=== PATIENT | male | born 1965 | race Caucasian/White ===

== ENCOUNTER 2018-10-08 09:18 | Emergency (ER) | payer OTHER ==
[~2018-10-08] VITALS: Ht 175.3 cm; Wt 92.1 kg
[~2018-10-08 09:18] MED LIST: CAT0.1 PO; GLU850 PO; HYDROCODONE-APAP PO; KEF500 PO; METOPROLOL PO; NORCO PO; OXCARBAZEPINE PO; PLA75 PO
[2018-10-08 09:30] VITALS: Ht 175.3 cm; Wt 92.1 kg
[2018-10-08 11:30] VITALS: BP 218/150
== END 2018-10-08 11:30 | disposition home or self-care (01) ==
LOC: ED 09:18
DX: S16.1XXA Strain of muscle, fascia and tendon at neck level, initial encounter (principal); S40.021A Contusion of right upper arm, initial encounter; I10 Essential (primary) hypertension; Z98.890 Other specified postprocedural states; Z88.8 Allergy status to other drugs, medicaments and biological substances; V49.88XA Car occupant (driver) (passenger) injured in other specified transport accidents, initial encounter; Y93.89 Activity, other specified; Y92.89 Other specified places as the place of occurrence of the external cause; Y99.8 Other external cause status
CPT/HCPCS: J1885

== ENCOUNTER 2019-08-19 02:01 | Emergency (ER) | payer OTHER ==
[~2019-08-19] VITALS: Ht 175.3 cm; Wt 91.2 kg
[2019-08-19 02:05] VITALS: Ht 175.3 cm; Wt 91.2 kg
[2019-08-19 02:43] VITALS: BP 190/109
== END 2019-08-19 02:43 | disposition home or self-care (01) ==
LOC: ED 02:01
DX: I16.0 Hypertensive urgency (principal); Z98.890 Other specified postprocedural states; Z88.8 Allergy status to other drugs, medicaments and biological substances

== ENCOUNTER 2019-08-21 19:03 | Emergency (ER) | payer OTHER ==
[~2019-08-21] VITALS: Ht 175.3 cm; Wt 94.3 kg
[2019-08-21 19:14] VITALS: Ht 175.3 cm; Wt 94.3 kg
[2019-08-21 20:32] LABS: BASOPHIL % 0.5 % (0-2); PLATELET COUNT 180 x10^3mcL (130-400); RED CELL DISTRIBUTION WIDTH 13.9 % (11.5-14.5)
[2019-08-21 20:44] LABS: CALCIUM 9.1 mg/dL (8.5-10.1); CARBON DIOXIDE 35.6 mmol/L (21-32); CREATININE SERUM 1.5 mg/dL (0.7-1.3)
[2019-08-21 20:56] LABS: T3 TOTAL 1.11 ng/mL
[2019-08-21 20:59] LABS: ALBUMIN 3.9 g/dL (3.4-5.0); BILIRUBIN TOTAL 0.25 mg/dL (0.20-1.00); CHOLESTEROL/HDL RATIO 6.3; TOTAL PROTEIN, SERUM 8.2 g/dL (6.4-8.2)
[2019-08-21 21:04] LABS: FREE T4 0.89 ng/dL (0.76-1.46); FREE THYROXINE INDEX 2.2 ug/dL (1.4-4.5); T4(THYROXINE) 6.8 ug/dL (4.7-13.3)
[2019-08-21 22:57] VITALS: BP 167/86
== END 2019-08-21 22:57 | disposition home or self-care (01) ==
LOC: ED 19:03
PROVIDERS: Specialist
DX: S16.1XXA Strain of muscle, fascia and tendon at neck level, initial encounter (principal); S39.012A Strain of muscle, fascia and tendon of lower back, initial encounter; G40.909 Epilepsy, unspecified, not intractable, without status epilepticus; I10 Essential (primary) hypertension; F32.9 Major depressive disorder, single episode, unspecified; Z90.49 Acquired absence of other specified parts of digestive tract; Z98.890 Other specified postprocedural states; Z88.8 Allergy status to other drugs, medicaments and biological substances; W19.XXXA Unspecified fall, initial encounter; Y93.89 Activity, other specified; Y92.89 Other specified places as the place of occurrence of the external cause; Y99.8 Other external cause status
CPT/HCPCS: 83880; 84439; J1885; J3010; J3490; J7030; Q0092

== ENCOUNTER 2019-09-05 09:56 | Emergency (ER) | payer OTHER ==
[~2019-09-05] VITALS: Ht 175.3 cm; Wt 94.8 kg
[2019-09-05 10:04] VITALS: Ht 175.3 cm; Wt 94.8 kg
[2019-09-05 11:39] LABS: BASOPHIL % 0.4 % (0-2); PLATELET COUNT 327 x10^3mcL (130-400)
[2019-09-05 11:43] LABS: RED CELL DISTRIBUTION WIDTH 14.8 % (11.5-14.5)
[2019-09-05 11:47] LABS: CALCIUM 8.7 mg/dL (8.5-10.1); CARBON DIOXIDE 28.6 mmol/L (21-32); CREATININE SERUM 1.4 mg/dL (0.7-1.3); POTASSIUM SERUM 4.4 mmol/L (3.5-5.1)
[2019-09-05 11:51] LABS: ALBUMIN 3.5 g/dL (3.4-5.0); BILIRUBIN TOTAL 0.25 mg/dL (0.20-1.00); TOTAL PROTEIN, SERUM 7.8 g/dL (6.4-8.2)
[2019-09-05 12:14] VITALS: BP 183/125
== END 2019-09-05 12:41 | disposition left against medical advice (07) ==
LOC: ED 09:56
PROVIDERS: Emergency Medicine
DX: G40.909 Epilepsy, unspecified, not intractable, without status epilepticus (principal); I10 Essential (primary) hypertension; F32.9 Major depressive disorder, single episode, unspecified; Z88.2 Allergy status to sulfonamides
CPT/HCPCS: J3490

== ENCOUNTER 2019-09-24 15:28 | Inpatient (IN) | payer OTHER ==
[~2019-09-24] VITALS: Ht 175.3 cm; Wt 77.1 kg
--- NOTE | 2019-09-24 16:02 | NUR ---
STARTED ON 1L NS TO 20G IN LAC PER DR ANI BHAKTA.
--- NOTE | 2019-09-24 16:05 | NUR ---
PT BIBA AFTER HAVING ARGUMENT WITH WHOM PT IN SEPERATED FROM PER MEDIC. PT REPORTED INCREASED HR. PRIOR TO GOING TO LOBBY TO AWAIT BED AVAIL, MEDIC STS PT BECAME PALE AND CLAMMY. PT THEN BECAME DIFFICULT TO AROUSE WITH VERBAL STIMULI. BUT RESPONDED TO PAINFUL STIMULI. PT MOVED TO BED 3. PER MEDIC PT DENIES SELF HARM BUT STS TOOK "A BUNCH" OF ROUTINE MEDS, REFERRING TO LABETALOL, AND APTIOM. WHEN ASKED HOW KATIA, PT STS "NO WAIT, I DIDN'T." PT CONNECTED TO FULL CM. PLACED IN TRENDELENBERG AT THIS TIME.
--- NOTE | 2019-09-24 16:11 | NUR ---
PT AT THIS TIME ADMIT TO TAKING MORE THAN PRESCRIBED AMOUNT; WHEN ASKED WHY, PT STS "MY !"
--- NOTE | 2019-09-24 16:19 | NUR ---
APTIOM 600MG AND LABETALOL 200MG FOUND IN PT'S POCKET.
[2019-09-24 16:46] LABS: BASOPHIL % 0.3 % (0-2); PLATELET COUNT 224 x10^3mcL (130-400); RED CELL DISTRIBUTION WIDTH 14.3 % (11.5-14.5)
--- NOTE | 2019-09-24 16:58 | NUR ---
TELE PSYCH IN PROGRESS AT THIS TIME. PT AAO4, RESP E/U. REMAINS CONNECTED TO FULL CM.
--- NOTE | 2019-09-24 16:58 | NUR ---
SPOKE TO [facility]AN WITH POISON CONTROL TO GIVE REPORT ON PT. PER [facility] MONITOR PT FOR 6-8 HRS FOR BRADYCARDIA AND HYPOTENSION. CHECK VALPORIC ACID, AMMONIA LEVELS. WILL CALL IF PT CONDITION CHANGES.
[2019-09-24 17:06] LABS: CALCIUM 7.9 mg/dL (8.5-10.1); CARBON DIOXIDE 26.9 mmol/L (21-32); CREATININE SERUM 1.8 mg/dL (0.7-1.3); POTASSIUM SERUM 3.8 mmol/L (3.5-5.1)
[2019-09-24 17:10] LABS: BILIRUBIN TOTAL 0.3 mg/dL (0.20-1.00); TOTAL PROTEIN, SERUM 6.6 g/dL (6.4-8.2)
--- NOTE | 2019-09-24 17:22 | NUR ---
PT CHANGED INTO GOWN; BUT REFUSED TO REMOVE JEANS AND SHOES.
--- NOTE | 2019-09-24 17:39 | NUR ---
ATTEMPTED TO CHANGE PT TO O2 VIA NC PER MD V/O BUT PT REFUSED.
--- NOTE | 2019-09-24 18:09 | NUR ---
PT TO REST VIA WC D/T HYPOTENSION. PT STS "I CAN WALK, I WALK A LOT." ENCOURAGED PT TO USE WC.
--- NOTE | 2019-09-24 19:04 | NUR ---
PT AMBULATORY TO RESTROOM WITH STEADY GAIT. STS NO DIZZINESS.
--- NOTE | 2019-09-24 19:11 | NUR ---
REPORT GIVEN TO INDRA MERAZ TO ASSUME CARE.
[2019-09-24 19:15] LABS: AMPHETAMINE QUAL UR NONE DETECTED (See below)
--- NOTE | 2019-09-24 19:32 | NUR ---
PT IN NO ACUTE DISTRESS. RESIDENT AT BEDSIDE.
--- NOTE | 2019-09-24 19:48 | NUR ---
PT REQUESTED FOR WATER, PER MD UPTON TO GIVE PT WATER AT THIS TIME. PT REMOVED HIS GOWN. REPORTED IT WAS WET. PT GIVEN NEW GOWN AND ASKED TO CHANGE INTO IT. PT REPORTED HE WOULD AFTER HE FINISHED HIS WATER.
--- NOTE | 2019-09-24 19:51 | NUR ---
GAVE REPORT TO JORDAN AT 4025 FOR ROOM 206B
[2019-09-24] MEDS ORDERED: LABETALOL HYDR200 M1 PO ×2 (19:52)
[2019-09-24] MEDS ORDERED: APTIOM600 MG PO (19:52)
--- NOTE | 2019-09-24 20:05 | NUR ---
RECEIVED PT FROM [facility] [employer], CAME IN DUE TO TAKING HIS BLOOD PRESSURE MEDICATION TO TAKE AWAY THE CHEST PAIN AFTER HAVING AN ARGUMENT WITH THE EX-. PT IS AAOX4. C/O HEADACHE, LIGHTHEADEDNESS AND NECK PAIN. SPEECH IS CLEAR. NO SOB NOTED, LUNG SOUNDS CTA. O2 SAT=96%, RA. DENIES CHEST PAIN/PRESSURE, SR ON THE MONITOR. DENIES ABDOMINAL DISCOMFORT. BOWEL SOUNDS ACTIVE. PT STATED THAT HE HAS TROUBLE URINATING, PT WAS ABLE TO URINATE LAST IN THE MORNING. PT STATED THAT HE HAS THE URGE TO URINATE. BLADDER IS SOFT. DENIES SUICIDAL IDEATION. IV SITE ON THE LAC IS PATENT AND INTACT. SIDE RAILS UPX2. CALL LIGHT ON REACH. PT'S HOME MEDICATIONS GIVEN TO PRIMARY NURSE RAMÓN. ENDORSED TO PRIMARY NURSE FOR CONTINUITY OF CARE
--- NOTE | 2019-09-24 20:10 | NUR ---
PT IN BED IN NO DISTRESS. INSTRUCTED PT TO USE CALL LIGHT WHICH IS WITHIN REACH. WILL CARRY OUT ALL NEW ORDERS AT THIS TIME.
[2019-09-24 20:22] VITALS: BP 102/70
[2019-09-24 20:30] VITALS: Ht 175.3 cm; Wt 77.1 kg
[2019-09-24 20:56] LABS: MAGNESIUM 1.6 mg/dL (1.8-2.4); PHOSPHOROUS 3.5 mg/dL (2.5-4.9)
[2019-09-24 20:58] LABS: CHOLESTEROL/HDL RATIO 5.6
[2019-09-24 21:05] LABS: T3 TOTAL 0.76 ng/mL
--- NOTE | 2019-09-24 21:30 | NUR ---
INFLUENZA VACCINE GIVEN TO LEFT DELTOID, PT TOLERATED WELL. RESTING IN BED IN NO DISTRESS. HOWEVER PT DOES APPEAR SAD D/T RECENT ARGUEMENT WITH SIGNIFICANT OTHER. COMFORT MEASURES PROVIDED. CALL LIGHT WITHIN REACH. WILL CONTINUE TO MONITOR CLOSELY.
[2019-09-24 21:33] LABS: FREE T4 0.67 ng/dL (0.76-1.46); T4(THYROXINE) 5.3 ug/dL (4.7-13.3)
--- NOTE | 2019-09-25 01:30 | NUR ---
MAG HOLT HUNG AT THIS TIME.
--- NOTE | 2019-09-25 03:04 | NUR ---
LAB CALLED RE-CRITICAL RESULT OF TROPONIN LEVEL 0.134, MADE AWARE,NO NEW ORDER,WILL INFORM PRIMARY RN OF CRITICAL RESULT.
[2019-09-25 05:58] VITALS: BP 110/63
[2019-09-25 06:11] LABS: BASOPHIL % 0.2 % (0-2); PLATELET COUNT 192 x10^3mcL (130-400); RED CELL DISTRIBUTION WIDTH 14.5 % (11.5-14.5)
[2019-09-25 06:25] LABS: CALCIUM 7.9 mg/dL (8.5-10.1); CARBON DIOXIDE 27.7 mmol/L (21-32); CREATININE SERUM 3.1 mg/dL (0.7-1.3); MAGNESIUM 2.3 mg/dL (1.8-2.4); PHOSPHOROUS 5.4 mg/dL (2.5-4.9); POTASSIUM SERUM 3.7 mmol/L (3.5-5.1)
--- NOTE | 2019-09-25 06:35 | NUR ---
PT RESTING IN BED. IVF ONGOING AT 100ML/HR. FSBS AT THIS TIME IS 163, PT REFUSED INSULIN; EDUCATED PT ON DIABETES, PT WAS INSISTENT HE IS NOT DIABETIC AND HE DOES NOT NEED INSULIN. FURTHER TEACHING NEEDED. WILL ENDORSE TO INCOMING SHIFT.
--- NOTE | 2019-09-25 07:20 | NUR ---
RECEIVED PATIENT LAYING IN BED AWAKE/ALERT, TECH AT BEDSIDE PERFORM US RENAL/BLADDER, PATIENT C/O IV PUMP IS NOT WORKING, ACKNOWLEDGE AND INFORM PATIENT NOTHING WRONG WITH THE IV PUMP, PATIENT STARTED TO GET MAD AND THREAT TO REMOVED IV, STATED "ALL NURSE ARE SAME NOT LISTENING TO ME, "I'M THE PATIENT". PATIENT REFUSED NURSE TO ASSESS AND TELL HER TO GET OUT.
[2019-09-25 07:37] VITALS: BP 129/79
--- NOTE | 2019-09-25 08:24 | NUR ---
SECURITY WEBER HERE AT BEDSIDE WITH RNGUS TALK TO PATIENT, AT FIRST PATIENT IS ANGRY AT SECURITY BUT WILLING TO TALK AND PATIENT AGREE TO COMPLIANT WITH TREATMENT AND ALLOW NURSE TO FIXED TELE AND DISCONNECT IV FROM IV PUMP, PATIENT IS CALM AND TALKING TO SECURITY REGARD TO HIS PROBLEMS, DON'T WANT AMA AT THIS TIME.
--- NOTE | 2019-09-25 09:13 | NUR ---
PATIENT CALM IN BED TOOK ALL HIS ROUTINE MED AND TOLERATED, DR. WAGNER WITH RESIDENTS AT BEDSIDE DISCUSS POC WITH PATIENT, WILL CONSULT NEPHRO AND CARDIO TO SEE PATIENT. NEED MET. CALL LIGHT WITHIN REACH.
--- NOTE | 2019-09-25 09:21 | NUR ---
[facility] POISON CONTR[facility] CALL AND RN UPDATE LABS AND VITALS, PER [facility] NEED TO MONITOR VALPROIC ACID LEVEL ONE MORE TIME. DR. MATIAS WAS INFORMED.
--- NOTE | 2019-09-25 11:57 | NUR ---
PATIENT IS CALM AND COOPERATIVE, BS 161 GAVE 3U REGULAR SQ TO RT ARM. PATIENT UP TO BATHROOM VOIDED, NEEDS MET. CALL LIGHT WITHIN REACH.
--- NOTE | 2019-09-25 12:34 | NUR ---
PATIENT WALKING BACK TO ROOM, EXPRESS HIS FEELING SAY "I AM HAPPY MY TALK TO ME". NO COMPLAINS. DEPAKOTE PO ADMINISTERED, NEEDS MET.
--- NOTE | 2019-09-25 14:56 | NUR ---
PATIENT SIGNED LEAVING AGAINST MEDICAL ADVISE, DR. DOS SANTOS WAS AWARE. REMOVED IV AND TELE BOX #17 GAVE TO ALAN. PATIENT GOT HIS 2 MEDICATION BOTTLE FROM PHARMACY. HOUSE SUP LADY AT BEDSIDE SPOKE TO PATIENT, REASON FOR LEAVING IS "NOT HAPPY WITH SERVICE AND NOBODY HOME TO FEED HIS DOGS". PATIENT LEFT AT THIS TIME WITH ALL HIS BELONGINGS.
--- NOTE | 2019-09-25 16:21 | NUR ---
ECHOCARDIOGRAM NOT DONE-DISCHARGED
[2019-09-25 19:47] LABS: UA SPECIFIC GRAVITY >=1.030 (1.005-1.035); microscopic required? YES; urine erythrocyte NEGATIVE (NEGATIVE)
== END 2019-09-25 14:53 | disposition left against medical advice (07) | DRG 812 ==
LOC: ED 15:28 → DU 19:15
PROVIDERS: Emergency Medicine; ADMIT Internal Medicine
DX: T50.992A Poisoning by other drugs, medicaments and biological substances, intentional self-harm, initial encounter (principal); I21.A1 Myocardial infarction type 2; N17.0 Acute kidney failure with tubular necrosis; E44.0 Moderate protein-calorie malnutrition; E83.42 Hypomagnesemia; D68.69 Other thrombophilia; E11.65 Type 2 diabetes mellitus with hyperglycemia; Z53.21 Procedure and treatment not carried out due to patient leaving prior to being seen by health care provider; I25.10 Atherosclerotic heart disease of native coronary artery without angina pectoris; I10 Essential (primary) hypertension; E78.5 Hyperlipidemia, unspecified; G40.909 Epilepsy, unspecified, not intractable, without status epilepticus; I25.2 Old myocardial infarction; Z68.25 Body mass index [BMI] 25.0-25.9, adult; Z79.84 Long term (current) use of oral hypoglycemic drugs; Y92.018 Other place in single-family (private) house as the place of occurrence of the external cause; Z79.899 Other long term (current) drug therapy
CPT/HCPCS: 82962; 83880; 84439; 90658; G0378; G0480; J3475; J7030; Q0092

== ENCOUNTER 2019-10-31 22:33 | Emergency (ER) | payer OTHER ==
[~2019-10-31] VITALS: Ht 175.3 cm; Wt 86.2 kg
[~2019-10-31 22:33] MED LIST changes: +APTIOM600 MG PO; +LABETALOL HYDR200 M1 PO
[2019-10-31 22:41] VITALS: Ht 175.3 cm; Wt 86.2 kg
[2019-10-31 23:57] LABS: BASOPHIL % 0.5 % (0-2); PLATELET COUNT 185 x10^3mcL (130-400); RED CELL DISTRIBUTION WIDTH 13.5 % (11.5-14.5)
[2019-11-01 00:25] LABS: CARBON DIOXIDE 27.6 mmol/L (21-32); CHLORIDE SERUM 105 mmol/L (98-107); CREATININE SERUM 1.2 mg/dL (0.7-1.3); GFR1 > 60 mL/min; GLUCOSE SERUM 179 mg/dL (74-106); POTASSIUM SERUM 3.8 mmol/L (3.5-5.1); SODIUM SERUM 142 mmol/L (136-145)
[2019-11-01 00:31] LABS: ALKALINE PHOSPHATASE 70 U/L (46-116); ALT/SGPT 29 U/L (16-63); AST/SGOT 9 U/L (15-37); BILIRUBIN TOTAL 0.2 mg/dL (0.20-1.00); LIPASE 240 IU/L (73-393)
[2019-11-01 00:33] LABS: ALBUMIN 3.3 g/dL (3.4-5.0)
[2019-11-01 05:17] VITALS: BP 160/99
== END 2019-11-01 05:16 | disposition home or self-care (01) ==
LOC: ED 22:33
PROVIDERS: Emergency Medicine
DX: K57.90 Diverticulosis of intestine, part unspecified, without perforation or abscess without bleeding (principal); R51 Headache; Z98.890 Other specified postprocedural states; Z88.8 Allergy status to other drugs, medicaments and biological substances
CPT/HCPCS: 36415; J1885

== ENCOUNTER 2019-11-15 11:47 | Inpatient (IN) | payer OTHER ==
[~2019-11-15] VITALS: Ht 175.3 cm; Wt 96.6 kg
[2019-11-15 11:56] VITALS: Ht 175.3 cm; Wt 96.6 kg
[2019-11-15 12:30] LABS: BASOPHIL % 0.5 % (0-2); PLATELET COUNT 265 x10^3mcL (130-400); RED CELL DISTRIBUTION WIDTH 13.2 % (11.5-14.5)
[2019-11-15 13:14] LABS: ALBUMIN 3.7 g/dL (3.4-5.0); BILIRUBIN TOTAL 0.2 mg/dL (0.20-1.00); CALCIUM 8.6 mg/dL (8.5-10.1); CARBON DIOXIDE 28.8 mmol/L (21-32); CREATININE SERUM 1.4 mg/dL (0.7-1.3)
[2019-11-15 14:20] LABS: MAGNESIUM 1.7 mg/dL (1.8-2.4)
[2019-11-15 14:39] LABS: CHOLESTEROL 207 mg/dL (<200); HDL CHOLESTEROL 26 mg/dL (40-60); TRIGLYCERIDES 644 mg/dL (<150)
[2019-11-15 15:13] VITALS: BP 178/103
[2019-11-15 16:10] VITALS: BP 132/100
[2019-11-15 19:45] VITALS: BP 137/80
[2019-11-15 22:59] VITALS: BP 141/78
[2019-11-16 05:02] VITALS: BP 151/83
[2019-11-16 06:06] LABS: BASOPHIL % 0.2 % (0-2); PLATELET COUNT 241 x10^3mcL (130-400); RED CELL DISTRIBUTION WIDTH 13.7 % (11.5-14.5)
[2019-11-16 06:23] LABS: CALCIUM 8.5 mg/dL (8.5-10.1); CARBON DIOXIDE 25.9 mmol/L (21-32); CHLORIDE SERUM 101 mmol/L (98-107); CREATININE SERUM 1.3 mg/dL (0.7-1.3); GFR1 > 60 mL/min; GLUCOSE SERUM 117 mg/dL (74-106); POTASSIUM SERUM 3.8 mmol/L (3.5-5.1); SODIUM SERUM 137 mmol/L (136-145)
[2019-11-16 08:27] VITALS: BP 160/73
[2019-11-16 12:58] VITALS: BP 140/86
[2019-11-16 17:28] VITALS: BP 181/100
[2019-11-16 18:06] VITALS: BP 157/87
[2019-11-16 20:50] VITALS: BP 158/87
[2019-11-17 05:55] VITALS: BP 181/88
[2019-11-17 06:28] LABS: BASOPHIL % 0.3 % (0-2); PLATELET COUNT 242 x10^3mcL (130-400); RED CELL DISTRIBUTION WIDTH 13.4 % (11.5-14.5)
[2019-11-17 06:43] LABS: CALCIUM 8.8 mg/dL (8.5-10.1); CARBON DIOXIDE 32.3 mmol/L (21-32); CHLORIDE SERUM 103 mmol/L (98-107); CREATININE SERUM 1.1 mg/dL (0.7-1.3); GFR1 > 60 mL/min; GLUCOSE SERUM 118 mg/dL (74-106); POTASSIUM SERUM 3.8 mmol/L (3.5-5.1); SODIUM SERUM 138 mmol/L (136-145)
== END 2019-11-17 08:14 | disposition left against medical advice (07) | DRG 190 ==
LOC: ED 11:47 → DU 13:29
PROVIDERS: Emergency Medicine; ADMIT Internal Medicine
DX: I21.A1 Myocardial infarction type 2 (principal); E11.65 Type 2 diabetes mellitus with hyperglycemia; I16.1 Hypertensive emergency; E83.42 Hypomagnesemia; Z53.29 Procedure and treatment not carried out because of patient's decision for other reasons; E78.5 Hyperlipidemia, unspecified; I10 Essential (primary) hypertension; I25.2 Old myocardial infarction; Z88.8 Allergy status to other drugs, medicaments and biological substances; Z91.14 Patient's other noncompliance with medication regimen; Z79.899 Other long term (current) drug therapy
CPT/HCPCS: 82962; 83880; G0378; J0360; J3490; Q0092

== ENCOUNTER 2019-12-02 09:51 | Inpatient (IN) | payer OTHER ==
[~2019-12-02] VITALS: Ht 175.3 cm; Wt 114.4 kg
[2019-12-02 09:52] VITALS: Ht 175.3 cm; Wt 114.4 kg
[2019-12-02 10:11] LABS: BASOPHIL % 0.3 % (0-2); PLATELET COUNT 241 x10^3mcL (130-400); RED CELL DISTRIBUTION WIDTH 13.5 % (11.5-14.5)
[2019-12-02 10:21] LABS: CALCIUM 8.6 mg/dL (8.5-10.1); CHLORIDE SERUM 102 mmol/L (98-107); CREATININE SERUM 1.3 mg/dL (0.7-1.3); GFR1 > 60 mL/min; GLUCOSE SERUM 108 mg/dL (74-106); POTASSIUM SERUM 4.1 mmol/L (3.5-5.1); SODIUM SERUM 138 mmol/L (136-145)
[2019-12-02 10:26] LABS: ALBUMIN 3.7 g/dL (3.4-5.0); ALKALINE PHOSPHATASE 81 U/L (46-116); ALT/SGPT 27 U/L (16-63); AST/SGOT 23 U/L (15-37); BILIRUBIN TOTAL 0.2 mg/dL (0.20-1.00); TOTAL PROTEIN, SERUM 7.9 g/dL (6.4-8.2)
[2019-12-02] MEDS ORDERED: DEPAKOTE500 MG PO (10:27)
[2019-12-02 12:47] VITALS: BP 190/106
[2019-12-02 13:37] VITALS: BP 178/115
[2019-12-02 16:40] VITALS: BP 148/100
[2019-12-02] MEDS ORDERED: NORCO1 TA2 PO (17:49)
[2019-12-02] MEDS ORDERED: DEPAKOTE ER500 MG PO (17:50)
[2019-12-02] MEDS ORDERED: APTIOM600 MG PO (17:51)
[2019-12-02 20:30] VITALS: BP 127/88
[2019-12-03 06:29] VITALS: BP 95/59
[2019-12-03 06:30] LABS: BASOPHIL % 0.3 % (0-2); PLATELET COUNT 251 x10^3mcL (130-400)
[2019-12-03 07:24] LABS: CALCIUM 8.4 mg/dL (8.5-10.1); CREATININE SERUM 2.6 mg/dL (0.7-1.3); POTASSIUM SERUM 5.3 mmol/L (3.5-5.1)
[2019-12-03 12:55] VITALS: BP 127/80
[2019-12-03 16:17] VITALS: BP 130/78; BP 160/65
[2019-12-03 19:15] VITALS: BP 137/83
[2019-12-04 06:12] VITALS: BP 165/108
[2019-12-04 06:51] VITALS: BP 169/94
[2019-12-04 07:36] LABS: BASOPHIL % 0.2 % (0-2); PLATELET COUNT 254 x10^3mcL (130-400); RED CELL DISTRIBUTION WIDTH 13.3 % (11.5-14.5)
[2019-12-04 07:45] LABS: CALCIUM 8.7 mg/dL (8.5-10.1); CARBON DIOXIDE 25.7 mmol/L (21-32); CREATININE SERUM 1.4 mg/dL (0.7-1.3); POTASSIUM SERUM 4.1 mmol/L (3.5-5.1)
[2019-12-04 08:22] VITALS: BP 157/104
[2019-12-04 11:53] VITALS: BP 145/96
[2019-12-04] MEDS ORDERED: CARVEDILOL12.5 M1 PO (13:23)
[2019-12-04 13:48] VITALS: BP 145/96
== END 2019-12-04 14:47 | disposition home or self-care (01) | DRG 199 ==
LOC: ED 09:51 → DU 11:10
PROVIDERS: Emergency Medicine; Internal Medicine; ADMIT Family Medicine
DX: I16.0 Hypertensive urgency (principal); E11.65 Type 2 diabetes mellitus with hyperglycemia; I25.10 Atherosclerotic heart disease of native coronary artery without angina pectoris; E78.5 Hyperlipidemia, unspecified; I10 Essential (primary) hypertension; G40.909 Epilepsy, unspecified, not intractable, without status epilepticus; I25.2 Old myocardial infarction; Z91.14 Patient's other noncompliance with medication regimen; Z88.8 Allergy status to other drugs, medicaments and biological substances; Z79.899 Other long term (current) drug therapy
CPT/HCPCS: 82962; G0378; J0360; J2270; J3490; Q0092

== ENCOUNTER 2019-12-07 21:59 | Emergency (ER) | payer OTHER ==
[~2019-12-07] VITALS: Ht 175.3 cm; Wt 94.8 kg
[~2019-12-07 21:59] MED LIST changes: +CARVEDILOL12.5 M1 PO; +DEPAKOTE ER500 MG PO; +DEPAKOTE500 MG PO; +NORCO1 TA2 PO
[2019-12-07 23:17] VITALS: BP 150/89
== END 2019-12-08 00:03 | disposition left against medical advice (07) ==
LOC: ED 21:59
DX: R56.9 Unspecified convulsions (principal); R07.89 Other chest pain; R79.89 Other specified abnormal findings of blood chemistry; I10 Essential (primary) hypertension
CPT/HCPCS: 36415; Q0092

== ENCOUNTER 2019-12-11 10:08 | Emergency (ER) | payer OTHER ==
[~2019-12-11] VITALS: Ht 175.3 cm; Wt 93.0 kg
[2019-12-11 10:13] VITALS: Ht 175.3 cm; Wt 93.0 kg
[2019-12-11 11:43] LABS: CALCIUM 8.4 mg/dL (8.5-10.1); CARBON DIOXIDE 30.5 mmol/L (21-32); CREATININE SERUM 1.4 mg/dL (0.7-1.3); POTASSIUM SERUM 4.4 mmol/L (3.5-5.1)
[2019-12-11 11:47] LABS: ALBUMIN 3.7 g/dL (3.4-5.0); BILIRUBIN TOTAL 0.2 mg/dL (0.20-1.00)
[2019-12-11 13:47] VITALS: BP 167/99
== END 2019-12-11 13:47 | disposition home or self-care (01) ==
LOC: ED 10:08
PROVIDERS: Emergency Medicine
DX: S60.221A Contusion of right hand, initial encounter (principal); R56.9 Unspecified convulsions; R51 Headache; H53.8 Other visual disturbances; I10 Essential (primary) hypertension; I25.2 Old myocardial infarction; X58.XXXA Exposure to other specified factors, initial encounter; Y93.89 Activity, other specified; Y92.89 Other specified places as the place of occurrence of the external cause; Y99.8 Other external cause status
CPT/HCPCS: 36415; Q0092

== ENCOUNTER 2020-01-01 17:13 | Inpatient (IN) | payer OTHER ==
[~2020-01-01] VITALS: Ht 175.3 cm; Wt 92.6 kg
[2020-01-01] MEDS ORDERED: DEPAKOTE500 MG PO (20:14)
[2020-01-01] MEDS ORDERED: APTIOM600 MG PO (20:14)
[2020-01-01] MEDS ORDERED: LABETALOL HYDR200 M1 PO (20:15)
[2020-01-01 20:17] LABS: BASOPHIL % 0.4 % (0-2); PLATELET COUNT 238 x10^3mcL (130-400); RED CELL DISTRIBUTION WIDTH 13.6 % (11.5-14.5)
[2020-01-01] MEDS ORDERED: IBU800 M2 PO (20:17)
[2020-01-01] MEDS ORDERED: LORCET1 TAB PO (20:17)
[2020-01-01 20:22] LABS: CALCIUM 9.1 mg/dL (8.5-10.1); CHLORIDE SERUM 104 mmol/L (98-107); CREATININE SERUM 1.2 mg/dL (0.7-1.3); GFR1 > 60 mL/min; GLUCOSE SERUM 99 mg/dL (74-106); POTASSIUM SERUM 4.4 mmol/L (3.5-5.1); SODIUM SERUM 143 mmol/L (136-145)
[2020-01-01 20:26] LABS: ALBUMIN 3.8 g/dL (3.4-5.0); ALKALINE PHOSPHATASE 72 U/L (46-116); ALT/SGPT 30 U/L (16-63); AST/SGOT 16 U/L (15-37); BILIRUBIN TOTAL 0.2 mg/dL (0.20-1.00); LIPASE 231 IU/L (73-393); TOTAL PROTEIN, SERUM 7.8 g/dL (6.4-8.2)
[2020-01-01 21:11] LABS: AMPHETAMINE QUAL UR NONE DETECTED (See below)
[2020-01-01 21:31] LABS: CHOLESTEROL/HDL RATIO 6.2
[2020-01-01 21:43] VITALS: BP 183/108
[2020-01-01 21:59] VITALS: Ht 175.3 cm; Wt 92.6 kg
== END 2020-01-02 07:00 | disposition left against medical advice (07) | DRG 190 ==
LOC: ED 17:13 → DU 19:56
PROVIDERS: Emergency Medicine; ADMIT Student in an Organized Health Care Education/Training Program
DX: I21.4 Non-ST elevation (NSTEMI) myocardial infarction (principal); R56.9 Unspecified convulsions; I10 Essential (primary) hypertension; R73.03 Prediabetes; E78.5 Hyperlipidemia, unspecified; Z53.29 Procedure and treatment not carried out because of patient's decision for other reasons; I24.9 Acute ischemic heart disease, unspecified; I16.0 Hypertensive urgency; I25.2 Old myocardial infarction; Z91.14 Patient's other noncompliance with medication regimen; Z88.8 Allergy status to other drugs, medicaments and biological substances
CPT/HCPCS: 83880; G0378; J1650; J3490

== ENCOUNTER 2020-01-13 21:23 | Inpatient (IN) | payer OTHER ==
[~2020-01-13] VITALS: Ht 175.3 cm; Wt 96.6 kg
[~2020-01-13 21:23] MED LIST changes: +IBU800 M2 PO; +LORCET1 TAB PO
[2020-01-13 22:10] LABS: BASOPHIL % 0.4 % (0-2); PLATELET COUNT 210 x10^3mcL (130-400); RED CELL DISTRIBUTION WIDTH 14.2 % (11.5-14.5)
[2020-01-13 22:26] LABS: CALCIUM 8.3 mg/dL (8.5-10.1); CARBON DIOXIDE 26.9 mmol/L (21-32); CREATININE SERUM 1.5 mg/dL (0.7-1.3); POTASSIUM SERUM 3.3 mmol/L (3.5-5.1)
[2020-01-13 22:31] LABS: ALBUMIN 3.5 g/dL (3.4-5.0); BILIRUBIN TOTAL 0.13 mg/dL (0.20-1.00)
[2020-01-13 23:50] LABS: CHOLESTEROL/HDL RATIO 6.8
[2020-01-14 00:03] LABS: FREE T4 0.75 ng/dL (0.76-1.46)
[2020-01-14 00:04] LABS: FREE THYROXINE INDEX 1.1 ug/dL (1.4-4.5); T4(THYROXINE) 3.8 ug/dL (4.7-13.3)
[2020-01-14 00:08] VITALS: Ht 175.3 cm; Wt 96.6 kg
[2020-01-14 00:17] LABS: T3 TOTAL 0.96 ng/mL
[2020-01-14 02:13] LABS: UA SPECIFIC GRAVITY >=1.030 (1.005-1.035); microscopic required? YES; urine erythrocyte NEGATIVE (NEGATIVE)
[2020-01-14 02:22] LABS: AMPHETAMINE QUAL UR NONE DETECTED (See below)
[2020-01-14 03:38] VITALS: BP 164/97
[2020-01-14 05:06] VITALS: BP 174/102
[2020-01-14 06:27] LABS: BASOPHIL % 0.2 % (0-2); PLATELET COUNT 197 x10^3mcL (130-400); RED CELL DISTRIBUTION WIDTH 14.5 % (11.5-14.5)
[2020-01-14 06:57] LABS: CALCIUM 8.4 mg/dL (8.5-10.1); CARBON DIOXIDE 26.6 mmol/L (21-32); CREATININE SERUM 1.4 mg/dL (0.7-1.3); MAGNESIUM 1.8 mg/dL (1.8-2.4); PHOSPHOROUS 3.5 mg/dL (2.5-4.9); POTASSIUM SERUM 3.5 mmol/L (3.5-5.1)
[2020-01-14 07:41] VITALS: BP 204/130
== END 2020-01-14 09:10 | disposition left against medical advice (07) | DRG 199 ==
LOC: ED 21:23 → DU 23:13
PROVIDERS: Emergency Medicine; ADMIT Family Medicine
DX: I16.0 Hypertensive urgency (principal); I24.8 Other forms of acute ischemic heart disease; E11.9 Type 2 diabetes mellitus without complications; I25.2 Old myocardial infarction; I10 Essential (primary) hypertension; Z53.29 Procedure and treatment not carried out because of patient's decision for other reasons; G40.909 Epilepsy, unspecified, not intractable, without status epilepticus; E87.6 Hypokalemia; E78.5 Hyperlipidemia, unspecified; Z91.19 Patient's noncompliance with other medical treatment and regimen
CPT/HCPCS: 82962; 83880; 84439; 85378; C9113; G0378; J0360; J1650; J2405; J3490; J7030; Q0092

== ENCOUNTER 2020-03-17 13:41 | Emergency (ER) | payer OTHER ==
[~2020-03-17] VITALS: Ht 175.3 cm; Wt 95.3 kg
[2020-03-17 13:48] VITALS: BP 188/124; Ht 175.3 cm; Wt 95.3 kg
== END 2020-03-17 15:00 | disposition home or self-care (01) ==
LOC: ED 13:41
DX: G89.29 Other chronic pain (principal); M79.672 Pain in left foot; M79.671 Pain in right foot; I25.2 Old myocardial infarction; I10 Essential (primary) hypertension; Z98.890 Other specified postprocedural states; Z88.8 Allergy status to other drugs, medicaments and biological substances; Z76.0 Encounter for issue of repeat prescription

== ENCOUNTER 2020-03-23 14:57 | Emergency (ER) | payer OTHER ==
[~2020-03-23] VITALS: Ht 175.3 cm; Wt 94.3 kg
[2020-03-23 15:17] VITALS: Ht 175.3 cm; Wt 94.3 kg
[2020-03-23 16:49] LABS: BASOPHIL % 0.4 % (0-2); PLATELET COUNT 240 x10^3mcL (130-400); RED CELL DISTRIBUTION WIDTH 13.8 % (11.5-14.5)
[2020-03-23 17:10] VITALS: BP 214/137
[2020-03-23 17:27] LABS: CALCIUM 8.3 mg/dL (8.5-10.1); CARBON DIOXIDE 28.9 mmol/L (21-32); CHLORIDE SERUM 104 mmol/L (98-107); CREATININE SERUM 1.2 mg/dL (0.7-1.3); GFR1 > 60 mL/min; GLUCOSE SERUM 122 mg/dL (74-106); POTASSIUM SERUM 3.8 mmol/L (3.5-5.1); SODIUM SERUM 141 mmol/L (136-145)
[2020-03-23 17:28] LABS: UA SPECIFIC GRAVITY >=1.030 (1.005-1.035); urine erythrocyte NEGATIVE (NEGATIVE)
[2020-03-23 17:29] LABS: microscopic required? YES
[2020-03-23 17:36] LABS: AMPHETAMINE QUAL UR NONE DETECTED (See below)
[2020-03-23 17:40] LABS: ALBUMIN 3.6 g/dL (3.4-5.0); ALKALINE PHOSPHATASE 86 U/L (46-116); ALT/SGPT 29 U/L (16-63); AST/SGOT 13 U/L (15-37); BILIRUBIN TOTAL 0.2 mg/dL (0.20-1.00); LIPASE 192 IU/L (73-393); MAGNESIUM 1.8 mg/dL (1.8-2.4); T4(THYROXINE) 4.7 ug/dL (4.7-13.3); TOTAL PROTEIN, SERUM 7.9 g/dL (6.4-8.2)
[2020-03-23 17:41] LABS: CHOLESTEROL 252 mg/dL (<200); HDL CHOLESTEROL 34 mg/dL (40-60)
== END 2020-03-23 17:10 | disposition left against medical advice (07) ==
LOC: ED 14:57
PROVIDERS: Emergency Medicine
DX: I21.4 Non-ST elevation (NSTEMI) myocardial infarction (principal); R56.9 Unspecified convulsions; I10 Essential (primary) hypertension; E11.9 Type 2 diabetes mellitus without complications; Z90.89 Acquired absence of other organs; Z59.0 Homelessness; Z88.8 Allergy status to other drugs, medicaments and biological substances
CPT/HCPCS: 83880; G0480; J1940; J3490; Q0092

== ENCOUNTER 2020-04-23 10:59 | Emergency (ER) | payer OTHER ==
[~2020-04-23] VITALS: Ht 175.3 cm; Wt 90.7 kg
[2020-04-23 11:06] VITALS: Ht 175.3 cm; Wt 90.7 kg
[2020-04-23 11:45] LABS: BASOPHIL % 0.3 % (0-2); PLATELET COUNT 240 x10^3mcL (130-400); RED CELL DISTRIBUTION WIDTH 14.2 % (11.5-14.5)
[2020-04-23 11:55] LABS: CALCIUM 7.6 mg/dL (8.5-10.1); CARBON DIOXIDE 30.2 mmol/L (21-32); CHLORIDE SERUM 103 mmol/L (98-107); CREATININE SERUM 1.3 mg/dL (0.7-1.3); GFR1 > 60 mL/min; GLUCOSE SERUM 145 mg/dL (74-106); POTASSIUM SERUM 3.4 mmol/L (3.5-5.1); SODIUM SERUM 141 mmol/L (136-145)
[2020-04-23 11:59] LABS: ALBUMIN 3.4 g/dL (3.4-5.0); ALKALINE PHOSPHATASE 98 U/L (46-116); ALT/SGPT 29 U/L (16-63); AST/SGOT 17 U/L (15-37); BILIRUBIN TOTAL 0.21 mg/dL (0.20-1.00); TOTAL PROTEIN, SERUM 7.3 g/dL (6.4-8.2)
[2020-04-23 12:00] LABS: CHOLESTEROL 208 mg/dL (<200)
[2020-04-23 13:19] VITALS: BP 178/110
== END 2020-04-23 13:47 | disposition left against medical advice (07) ==
LOC: ED 10:59 → DU 13:13
PROVIDERS: Emergency Medicine
DX: R55 Syncope and collapse (principal); I10 Essential (primary) hypertension; E11.9 Type 2 diabetes mellitus without complications; Z88.8 Allergy status to other drugs, medicaments and biological substances
CPT/HCPCS: G0378; J1885; Q0092

== ENCOUNTER 2020-05-01 12:06 | Emergency (ER) | payer OTHER ==
[~2020-05-01] VITALS: Ht 177.8 cm; Wt 81.6 kg
[2020-05-01 12:51] VITALS: Ht 177.8 cm; Wt 81.6 kg
[2020-05-01 15:35] VITALS: BP 170/122
== END 2020-05-01 15:35 | disposition left against medical advice (07) ==
LOC: ED 12:06
DX: S46.912A Strain of unspecified muscle, fascia and tendon at shoulder and upper arm level, left arm, initial encounter (principal); M54.9 Dorsalgia, unspecified; I10 Essential (primary) hypertension; E11.9 Type 2 diabetes mellitus without complications; Z98.890 Other specified postprocedural states; Z88.8 Allergy status to other drugs, medicaments and biological substances; V03.99XA Pedestrian with other conveyance injured in collision with car, pick-up truck or van, unspecified whether traffic or nontraffic accident, initial encounter; Y93.89 Activity, other specified; Y92.89 Other specified places as the place of occurrence of the external cause; Y99.8 Other external cause status
CPT/HCPCS: 72072

== ENCOUNTER 2020-05-10 16:44 | Emergency (ER) | payer OTHER ==
[~2020-05-10] VITALS: Ht 175.3 cm; Wt 93.0 kg
[2020-05-10 16:51] VITALS: Ht 175.3 cm; Wt 93.0 kg
[2020-05-10 17:34] LABS: BASOPHIL % 0.4 % (0-2); PLATELET COUNT 231 x10^3mcL (130-400); RED CELL DISTRIBUTION WIDTH 14.1 % (11.5-14.5)
[2020-05-10 17:55] LABS: CALCIUM 8.1 mg/dL (8.5-10.1); CARBON DIOXIDE 28.5 mmol/L (21-32); CHLORIDE SERUM 104 mmol/L (98-107); CREATININE SERUM 1.2 mg/dL (0.7-1.3); GFR1 > 60 mL/min; GLUCOSE SERUM 110 mg/dL (74-106); POTASSIUM SERUM 3.8 mmol/L (3.5-5.1); SODIUM SERUM 141 mmol/L (136-145)
[2020-05-10 17:59] LABS: ALBUMIN 3.4 g/dL (3.4-5.0); ALKALINE PHOSPHATASE 92 U/L (46-116); ALT/SGPT 24 U/L (16-63); AST/SGOT 10 U/L (15-37); BILIRUBIN TOTAL 0.2 mg/dL (0.20-1.00); LIPASE 168 IU/L (73-393); TOTAL PROTEIN, SERUM 7.4 g/dL (6.4-8.2)
[2020-05-10 18:44] VITALS: BP 203/124
== END 2020-05-10 18:45 | disposition home or self-care (01) ==
LOC: ED 16:44
PROVIDERS: Emergency Medicine
DX: I24.9 Acute ischemic heart disease, unspecified (principal); I10 Essential (primary) hypertension; G40.909 Epilepsy, unspecified, not intractable, without status epilepticus; E11.9 Type 2 diabetes mellitus without complications
CPT/HCPCS: J3490; Q0092

== ENCOUNTER 2020-05-22 20:25 | Inpatient (IN) | payer OTHER ==
[~2020-05-22] VITALS: Ht 175.3 cm; Wt 90.7 kg
[2020-05-22 20:34] VITALS: Ht 175.3 cm; Wt 90.7 kg
[2020-05-22 21:16] LABS: BASOPHIL % 0.2 % (0-2); PLATELET COUNT 218 x10^3mcL (130-400); RED CELL DISTRIBUTION WIDTH 14.3 % (11.5-14.5)
[2020-05-22 21:17] LABS: CALCIUM 8.4 mg/dL (8.5-10.1); CARBON DIOXIDE 27.4 mmol/L (21-32); CREATININE SERUM 1.6 mg/dL (0.7-1.3); POTASSIUM SERUM 3.7 mmol/L (3.5-5.1)
[2020-05-22 21:20] LABS: ALBUMIN 3.5 g/dL (3.4-5.0)
[2020-05-22 22:08] LABS: BILIRUBIN TOTAL 0.19 mg/dL (0.20-1.00); TOTAL PROTEIN, SERUM 7.4 g/dL (6.4-8.2)
[2020-05-22 23:38] LABS: MAGNESIUM 1.9 mg/dL (1.8-2.4); PHOSPHOROUS 3.9 mg/dL (2.5-4.9)
[2020-05-22 23:39] LABS: CHOLESTEROL/HDL RATIO 7.2
[2020-05-22 23:45] LABS: FREE T4 0.74 ng/dL (0.76-1.46); FREE THYROXINE INDEX 1.6 ug/dL (1.4-4.5); T4(THYROXINE) 5.1 ug/dL (4.7-13.3)
[2020-05-22] MEDS ORDERED: NOR7T PO (23:50)
[2020-05-22] MEDS ORDERED: DEPAKOTE500 MG PO (23:50)
[2020-05-22] MEDS ORDERED: FORTAMET500 M1 PO (23:51)
[2020-05-22] MEDS ORDERED: ZESTRIL20 MG PO (23:51)
[2020-05-23 00:28] LABS: T3 TOTAL 0.94 ng/mL
[2020-05-23 00:48] VITALS: BP 154/92
[2020-05-23 05:45] VITALS: BP 144/79
[2020-05-23 06:59] LABS: BASOPHIL % 0.3 % (0-2); PLATELET COUNT 205 x10^3mcL (130-400); RED CELL DISTRIBUTION WIDTH 14.5 % (11.5-14.5)
[2020-05-23 07:14] LABS: CALCIUM 7.8 mg/dL (8.5-10.1); CREATININE SERUM 1.5 mg/dL (0.7-1.3); POTASSIUM SERUM 3.6 mmol/L (3.5-5.1)
[2020-05-23 08:41] VITALS: BP 144/84
[2020-05-23 09:18] LABS: UA SPECIFIC GRAVITY >=1.030 (1.005-1.035); microscopic required? YES; urine erythrocyte NEGATIVE (NEGATIVE)
[2020-05-23 12:34] VITALS: BP 145/88
== END 2020-05-23 14:15 | disposition left against medical advice (07) | DRG 199 ==
LOC: ED 20:25 → DU 22:32
PROVIDERS: Emergency Medicine; ADMIT Internal Medicine; ATTEND Internal Medicine
DX: I16.1 Hypertensive emergency (principal); N17.9 Acute kidney failure, unspecified; E11.22 Type 2 diabetes mellitus with diabetic chronic kidney disease; G40.909 Epilepsy, unspecified, not intractable, without status epilepticus; I25.2 Old myocardial infarction; I12.9 Hypertensive chronic kidney disease with stage 1 through stage 4 chronic kidney disease, or unspecified chronic kidney disease; N18.9 Chronic kidney disease, unspecified; Z82.49 Family history of ischemic heart disease and other diseases of the circulatory system; Z91.14 Patient's other noncompliance with medication regimen; Z79.899 Other long term (current) drug therapy
CPT/HCPCS: 82962; 83880; 84439; G0378; J1650; J2270; J2405; J3490; Q0092

== ENCOUNTER 2020-05-27 12:17 | Emergency (ER) | payer OTHER ==
[~2020-05-27] VITALS: Ht 175.3 cm; Wt 91.6 kg
[~2020-05-27 12:17] MED LIST changes: +FORTAMET500 M1 PO; +NOR7T PO; +ZESTRIL20 MG PO
[2020-05-27 12:34] VITALS: Ht 175.3 cm; Wt 91.6 kg
[2020-05-27 13:03] LABS: CALCIUM 8.2 mg/dL (8.5-10.1); CARBON DIOXIDE 28.1 mmol/L (21-32); CREATININE SERUM 1.6 mg/dL (0.7-1.3); POTASSIUM SERUM 3.8 mmol/L (3.5-5.1)
[2020-05-27 13:08] LABS: ALBUMIN 3.4 g/dL (3.4-5.0); BILIRUBIN TOTAL 0.18 mg/dL (0.20-1.00); TOTAL PROTEIN, SERUM 7.4 g/dL (6.4-8.2)
[2020-05-27 13:22] LABS: BASOPHIL % 0.4 % (0-2); PLATELET COUNT 233 x10^3mcL (130-400); RED CELL DISTRIBUTION WIDTH 14.4 % (11.5-14.5)
[2020-05-27 14:22] VITALS: BP 161/100
== END 2020-05-27 14:22 | disposition home or self-care (01) ==
LOC: ED 12:17
PROVIDERS: Emergency Medicine
DX: I24.9 Acute ischemic heart disease, unspecified (principal); I16.0 Hypertensive urgency; I25.2 Old myocardial infarction; I10 Essential (primary) hypertension; E11.9 Type 2 diabetes mellitus without complications
CPT/HCPCS: 85378; Q0092

== ENCOUNTER 2020-08-09 11:43 | Observation (INO) | payer OTHER ==
[~2020-08-09] VITALS: Ht 175.3 cm; Wt 96.2 kg
[2020-08-09 11:59] VITALS: Ht 175.3 cm; Wt 96.2 kg
[2020-08-09 13:20] LABS: BASOPHIL % 0.9 % (0-2); PLATELET COUNT 235 x10^3mcL (130-400)
[2020-08-09 14:31] LABS: CALCIUM 8.3 mg/dL (8.5-10.1); CARBON DIOXIDE 29.7 mmol/L (21-32); CHLORIDE SERUM 103 mmol/L (98-107); CREATININE SERUM 1.2 mg/dL (0.7-1.3); GFR1 > 60 mL/min; GLUCOSE SERUM 117 mg/dL (74-106); POTASSIUM SERUM 3.9 mmol/L (3.5-5.1); SODIUM SERUM 141 mmol/L (136-145)
[2020-08-09 14:36] LABS: ALBUMIN 3.6 g/dL (3.4-5.0); ALKALINE PHOSPHATASE 82 U/L (46-116); ALT/SGPT 22 U/L (16-63); AST/SGOT 12 U/L (15-37); BILIRUBIN TOTAL 0.2 mg/dL (0.20-1.00); TOTAL PROTEIN, SERUM 7.6 g/dL (6.4-8.2)
[2020-08-09] MEDS ORDERED: DEPAKOTE500 MG PO (15:04)
[2020-08-09] MEDS ORDERED: APTIOM600 MG PO (15:05)
[2020-08-09 18:47] VITALS: BP 152/93
[2020-08-09 20:27] VITALS: BP 164/93
[2020-08-10 05:49] VITALS: BP 151/82
[2020-08-10 09:14] LABS: PLATELET COUNT 247 x10^3mcL (130-400); RED CELL DISTRIBUTION WIDTH 14.4 % (11.5-14.5)
== END 2020-08-10 07:40 | disposition left against medical advice (07) ==
LOC: ED 11:43 → DU 15:19
PROVIDERS: Emergency Medicine; ADMIT Hospitalist; ATTEND Hospitalist
DX: I16.0 Hypertensive urgency (principal); R07.9 Chest pain, unspecified; I25.2 Old myocardial infarction; G40.909 Epilepsy, unspecified, not intractable, without status epilepticus; I25.10 Atherosclerotic heart disease of native coronary artery without angina pectoris; I10 Essential (primary) hypertension; Z98.890 Other specified postprocedural states; Z95.1 Presence of aortocoronary bypass graft
CPT/HCPCS: G0378; J0360; J1953; J2060; J2405; J3490

== ENCOUNTER 2020-08-13 15:49 | Emergency (ER) | payer OTHER ==
[~2020-08-13] VITALS: Ht 175.3 cm; Wt 94.3 kg
[2020-08-13 15:59] VITALS: Ht 175.3 cm; Wt 94.3 kg
[2020-08-13 16:17] VITALS: BP 205/135
== END 2020-08-13 16:18 | disposition left against medical advice (07) ==
LOC: ED 15:49
DX: Z53.21 Procedure and treatment not carried out due to patient leaving prior to being seen by health care provider (principal)
CPT/HCPCS: 82962

== ENCOUNTER 2020-08-18 13:56 | Emergency (ER) | payer OTHER | END 2020-08-18 15:23 | disposition left against medical advice (07) | LOC: ED 13:56 | DX: Z53.21 Procedure and treatment not carried out due to patient leaving prior to being seen by health care provider (principal) ==